=== PATIENT | female | born 1990 | race Caucasian/White ===

== ENCOUNTER 2025-07-23 00:33 | Inpatient (IN) | payer OTHER, SELFPAY ==
[2025-07-23 01:01] LABS: Glucose - Point of Care 96 mg/dl (70-99)
[2025-07-23 01:03] VITALS: BMI 35.1
[2025-07-23 01:04] VITALS: BP 107/88; BMI 35.1
[2025-07-23] MEDS: LR 1000 IV ×2 (01:17→02:51)
[2025-07-23 01:25] LABS: Hematocrit 40.7 % (37.0-47.0); Hemoglobin 14.2 g/dL (12.0-16.0); Mean Corp Hgb Conc. 34.9 g/dL (33.0-37.0); Mean Corpuscular Volume 85.1 fL (81.0-99.0); Nucleated Red Blood Cells % 0 %; Platelet Count 212 10^3/uL (130-400); Red Cell Dist. Width 13.5 % (11.5-14.5)
[2025-07-23] MEDS: SUBLIMAZE 100 MCG EPIDURAL (01:38)
[2025-07-23] MEDS: FENTANYL/BUPIVACAINE 100 EPIDURAL (01:39)
[2025-07-23] MEDS: PENICILLIN 110 UNITS IV (01:50)
[2025-07-23 03:01] LABS: Glucose - Point of Care 110 mg/dl (70-99)
[2025-07-23] MEDS: PITOCIN 30 UNITS/NSS 500 ML IV (04:42)
[2025-07-23] MEDS: MOTRIN 600 MG PO ×2 (13:40→20:23)
[2025-07-23] MEDS: COLACE 100 MG PO ×2 (13:42→20:23)
[2025-07-23] MEDS: PRENATAL PLUS 1 TABLET PO (20:23)
[2025-07-24 05:04] LABS: Hematocrit 38.2 % (37.0-47.0); Hemoglobin 13.3 g/dL (12.0-16.0)
[2025-07-24] MEDS: MOTRIN 600 MG PO (05:32)
[2025-07-24] MEDS: TYLENOL 650 MG PO (05:32)
[2025-07-24] MEDS: COLACE 100 MG PO (08:32)
[2025-07-24] MEDS: RHOGAM 300 MCG IM (12:30)
[2025-07-24 13:50] LABS: Syphilis/T. pallidum Ab Reflex Negative (Negative)
[2025-07-24] MEDS: M-M-R II 0.5 ML SC (14:58)
== END 2025-07-24 16:02 | disposition home or self-care (01) | DRG 807 ==
LOC: LDRP 00:33
PROVIDERS: Obstetrics & Gynecology; ADMITTING PHYSICIAN Obstetrics & Gynecology
PROC: 0HQ9XZZ Repair Perineum Skin, External Approach (ICD-10-PCS; 2025-07-23)
PROC: 10E0XZZ Delivery of Products of Conception, External Approach (ICD-10-PCS; 2025-07-23)
PROC: 3E0234Z Introduction of Serum, Toxoid and Vaccine into Muscle, Percutaneous Approach (ICD-10-PCS; 2025-07-24)
DX: O48.0 Post-term pregnancy (principal); Z37.0 Single live birth; Z3A.40 40 weeks gestation of pregnancy; O99.824 Streptococcus B carrier state complicating childbirth; O24.429 Gestational diabetes mellitus in childbirth, unspecified control; O70.0 First degree perineal laceration during delivery
CPT/HCPCS: 36415; 82962; 85014; 85018; 85025; 85461; 86780; 86850; 86900; 86901; 90707; J2790